=== PATIENT | male | born 2000 | race Caucasian/White ===

== ENCOUNTER 2019-06-19 16:31 | Emergency (ER) | payer OTHER ==
[~2019-06-19] VITALS: Ht 167.6 cm; Wt 77.1 kg
[2019-06-19 16:51] VITALS: BP 131/93
--- NOTE | 2019-06-19 17:11 | NUR ---
19 Y/O M C/C RLQ PAIN 8/10, PRESSURE, RADIATING TO TESTICLES X 1 WEEK. PER PT DENIES TRAUMA, BUT LIFTED HEAVY EQUIPMENT A WEEK AGO. PT TAKING IBUPROFEN WITH NO RELIEF. PT NKA. NO HX. NO RX. NO N/V/D. SIDE RAIL X1. SKIN WARM TO TOUCH.
[2019-06-19 17:46] VITALS: BP 131/93
--- NOTE | 2019-06-19 17:46 | NUR ---
Patient discharged with v/s stable. Written and verbal after care instructions given and explained. Patient alert, oriented and verbalized understanding of instructions. Carried with steady gait. All questions addressed prior to discharge. ID band removed. Patient advised to follow up with PMD. Opportunity to ask questions provided and answered.
== END 2019-06-19 17:46 | disposition home or self-care (01) ==
LOC: MED 16:31
DX: S39.011A Strain of muscle, fascia and tendon of abdomen, initial encounter (principal); R03.0 Elevated blood-pressure reading, without diagnosis of hypertension; X50.0XXA Overexertion from strenuous movement or load, initial encounter; Y93.89 Activity, other specified; Y92.89 Other specified places as the place of occurrence of the external cause; Y99.8 Other external cause status
CPT/HCPCS: 99283

== ENCOUNTER 2021-05-23 18:11 | Emergency (ER) | payer SELFPAY ==
[~2021-05-23] VITALS: Ht 165.1 cm; Wt 78.0 kg
[2021-05-23 18:32] VITALS: BP 138/73
--- NOTE | 2021-05-23 18:44 | NUR ---
EKG AT TRIAGE ROOM.
--- NOTE | 2021-05-23 18:57 | NUR ---
C/O 11/25 LEFT CHEST PAIN, LEGS CRAMPING S/P PLAYING BASKETBALL X TODAY. PMH: DENIES
[2021-05-23] MEDS ORDERED: LORazepam 0.5 MG TAB PO ONE (19:10)
[2021-05-23] MEDS ORDERED: KETOROLAC 30 MG/ML VIAL IM ONE (19:20)
[2021-05-23 20:46] LABS: BASOPHILS # (AUTO) 0.1 K/uL (0.00-0.22); BASOPHILS % (AUTO) 0.4 % (0.0-2.0); EOSINOPHILS % (AUTO) 0.3 % (0.0-4.0); HEMATOCRIT 47.4 % (36-52); HEMOGLOBIN 16.6 g/dL (12.0-18.0); LYMPHOCYTES # (AUTO) 1.2 K/uL (2.0-11.5); LYMPHOCYTES % (AUTO) 7.9 % (20.5-51.1); MEAN CORPUSCULAR HEMOGLOBIN 29 pg (27-31); MEAN CORPUSCULAR HGB CONC 35 g/dL (33-37); MONOCYTES # (AUTO) 0.8 K/uL (0.8-1.0); MONOCYTES % (AUTO) 5.7 % (1.7-9.3); NEUTROPHILS # (AUTO) 12.6 K/uL (1.8-7.7); NEUTROPHILS % (AUTO) 85.7 % (42.2-75.2); PLATELET COUNT (AUTO) 268 K/uL (140-450); RED BLOOD CELL COUNT(AUTO) 5.71 MIL/uL (4.20-6.10); RED CELL DISTRIBUTION WIDTH 13.5 % (11.6-13.7); WHITE BLOOD COUNT (AUTO) 14.8 K/uL (4.8-10.8)
[2021-05-23 22:29] LABS: ALBUMIN 4.6 g/dL (3.4-5.0); ANION GAP 15.7 (8-16); CARBON DIOXIDE 25.8 mmol/L (21-32); CREATININE 0.8 mg/dL (0.6-1.3); POTASSIUM 3.5 mmol/L (3.5-5.1); TOTAL BILIRUBIN 0.5 mg/dL (0.0-1.0)
[2021-05-23 22:49] VITALS: BP 120/68
--- NOTE | 2021-05-23 22:50 | NUR ---
Patient discharged with v/s stable. Written and verbal after care instructions given and explained. Patient verbalized understanding. Ambulatory with steady gait. All questions addressed prior to discharge. Advised to follow up with PMD.
== END 2021-05-23 22:50 | disposition home or self-care (01) ==
LOC: MED 18:11
DX: R00.2 Palpitations (principal); R10.9 Unspecified abdominal pain; R25.2 Cramp and spasm
CPT/HCPCS: 36415; 71045; 74176; 80053; 81002; 83690; 85025; 93005; 96372; 99285; J1885

== ENCOUNTER 2021-08-07 10:21 | Outpatient (CLI) | payer MEDICAID ==
[2021-08-07 10:52] LABS: BASOPHILS # (AUTO) 0.1 K/uL (0.00-0.22); BASOPHILS % (AUTO) 0.7 % (0.0-2.0); EOSINOPHILS # (AUTO) 0.2 K/uL (0-0.4); EOSINOPHILS % (AUTO) 2.9 % (0.0-4.0); HEMATOCRIT 47.7 % (36-52); HEMOGLOBIN 16.7 g/dL (12.0-18.0); LYMPHOCYTES # (AUTO) 1.6 K/uL (2.0-11.5); LYMPHOCYTES % (AUTO) 20.1 % (20.5-51.1); MEAN CORPUSCULAR HEMOGLOBIN 29 pg (27-31); MEAN CORPUSCULAR HGB CONC 35 g/dL (33-37); MEAN CORPUSCULAR VOLUME 82.8 fL (80-94); MONOCYTES # (AUTO) 0.6 K/uL (0.8-1.0); MONOCYTES % (AUTO) 7.5 % (1.7-9.3); NEUTROPHILS # (AUTO) 5.5 K/uL (1.8-7.7); NEUTROPHILS % (AUTO) 68.8 % (42.2-75.2); PLATELET COUNT (AUTO) 241 K/uL (140-450); RED BLOOD CELL COUNT(AUTO) 5.77 MIL/uL (4.20-6.10); RED CELL DISTRIBUTION WIDTH 13.4 % (11.6-13.7)
[2021-08-07 11:07] LABS: ALBUMIN 4.1 g/dL (3.4-5.0); ANION GAP 7.9 (8-16); CHOL/HDL RATIO 4.1 (1-4.5); CREATININE 0.7 mg/dL (0.6-1.3); POTASSIUM 3.9 mmol/L (3.5-5.1); TOTAL BILIRUBIN 0.4 mg/dL (0.0-1.0)
[2021-08-08 12:07] LABS: HEPATITIS A ANTIBODY IGM Negative (Negative); HEPATITIS B SURFACE ANTIGEN Negative (Negative)
== END 2021-08-07 19:56 | disposition home or self-care (01) ==
LOC: MLB 10:21 → EDSTATUS 11:49 → MLB 19:56
PROVIDERS: ATTEND Family Medicine
DX: Z13.220 Encounter for screening for lipoid disorders (principal)
CPT/HCPCS: 36415; 80053; 80074; 85025; 86803

== ENCOUNTER 2021-09-18 21:20 | Emergency (ER) | payer MEDICAID ==
[~2021-09-18] VITALS: Ht 157.5 cm; Wt 81.6 kg
--- NOTE | 2021-09-18 22:40 | NUR ---
Dr. Damon examining patient.
[2021-09-18] MEDS ORDERED: IBUPROFEN 800 MG TAB PO ONE (23:50)
--- NOTE | 2021-09-19 | NUR ---
COVID-19 and flu swabs collected and sent to lab.
[2021-09-19 00:13] LABS: BASOPHILS # (AUTO) 0.1 K/uL (0.00-0.22); BASOPHILS % (AUTO) 0.5 % (0.0-2.0); EOSINOPHILS # (AUTO) 0.1 K/uL (0-0.4); EOSINOPHILS % (AUTO) 0.8 % (0.0-4.0); HEMATOCRIT 48.3 % (36-52); HEMOGLOBIN 16.8 g/dL (12.0-18.0); LYMPHOCYTES # (AUTO) 1.8 K/uL (2.0-11.5); LYMPHOCYTES % (AUTO) 14.8 % (20.5-51.1); MEAN CORPUSCULAR HEMOGLOBIN 29 pg (27-31); MEAN CORPUSCULAR HGB CONC 35 g/dL (33-37); MEAN CORPUSCULAR VOLUME 83.2 fL (80-94); MONOCYTES # (AUTO) 0.7 K/uL (0.8-1.0); MONOCYTES % (AUTO) 5.9 % (1.7-9.3); NEUTROPHILS # (AUTO) 9.6 K/uL (1.8-7.7); PLATELET COUNT (AUTO) 287 K/uL (140-450); RED CELL DISTRIBUTION WIDTH 13.7 % (11.6-13.7); WHITE BLOOD COUNT (AUTO) 12.3 K/uL (4.8-10.8)
--- NOTE | 2021-09-19 01:34 | NUR ---
Assumed patient care, here for bodyaches. No assesment no signs of distress, all blood work and swab done, awaiting for results.
[2021-09-19 01:49] LABS: CREATININE 0.7 mg/dL (0.6-1.3); TOTAL BILIRUBIN 0.5 mg/dL (0.0-1.0)
[2021-09-19 02:07] VITALS: BP 115/51
--- NOTE | 2021-09-19 02:31 | NUR ---
Pt cleared for dc to home with Dr. Damon. Vs stable on dc, instructions reinforced.
[2021-09-19 02:51] LABS: ALBUMIN 4.6 g/dL (3.4-5.0)
== END 2021-09-19 02:30 | disposition home or self-care (01) ==
LOC: MED 21:20
DX: M79.18 Myalgia, other site (principal); Z20.822 Contact with and (suspected) exposure to COVID-19
CPT/HCPCS: 36415; 80053; 82550; 85025; 99283

== ENCOUNTER 2021-09-23 09:46 | Emergency (ER) | payer MEDICAID ==
[~2021-09-23] VITALS: Ht 167.6 cm; Wt 80.3 kg
[2021-09-23 09:54] VITALS: BP 134/68
--- NOTE | 2021-09-23 09:59 | NUR ---
PT AMBULATED TO BED 07.
--- NOTE | 2021-09-23 10:15 | NUR ---
21 Y/O MALE C/O BILATERAL LEG AND SHOULDER PAIN, WAS SEEN HERE LAST WEEK FOR SAME SYMPTOMS AND DC BUT HAS NOT FOUND RELIEF. PMH: DENIES NKA
[2021-09-23] MEDS ORDERED: VITA-16 PO (10:44)
[2021-09-23 10:54] VITALS: BP 115/74
--- NOTE | 2021-09-23 10:55 | NUR ---
Patient discharged with v/s stable. Written and verbal after care instructions given and explained. Patient alert, oriented and verbalized understanding of instructions. Ambulatory with steady gait. All questions addressed prior to discharge. ID band removed. Patient advised to follow up with PMD. Rx of VITAMIN D3 given. Patient educated on indication of medication including possible reaction and side effects. Opportunity to ask questions provided and answered.
== END 2021-09-23 10:55 | disposition home or self-care (01) ==
LOC: MED 09:46
DX: M79.10 Myalgia, unspecified site (principal); Z79.899 Other long term (current) drug therapy
CPT/HCPCS: 99282

== ENCOUNTER 2021-11-27 09:20 | Emergency (ER) | payer MEDICAID ==
[~2021-11-27] VITALS: Ht 165.1 cm; Wt 81.8 kg
[~2021-11-27 09:20] MED LIST: VITA-16 PO
[2021-11-27 10:00] VITALS: BP 132/79
--- NOTE | 2021-11-27 10:24 | NUR ---
Patient ambulated to bed 12 with steady/even gait.
--- NOTE | 2021-11-27 10:50 | NUR ---
Dr. Lema is evaluating patient at bedside with [place]ian interpretor Andres #[phone].
--- NOTE | 2021-11-27 10:50 | NUR ---
21 y/o M BIB self from home c/o dizziness, weakness, muscle spasms, double/blurry vision x 2 days. Patient A&Ox4, ambulatory, states symptoms worsen with sun exposure, reports near syncope and weakness when ambulating. Pt requesting MRI completed as advised by PCP. Next neuro appointment in March per patient. Admitted to [facility] 10/07 for myalgia. Patient denies chest pain, SOB, headache, abdominal pain, fever, chills, cough. Denies meds prior to arrival. entry level sales representative in place. Bed locked in lowest position, side rails x 1. NKDA Meds: Vitamin D3
--- NOTE | 2021-11-27 11:00 | NUR ---
Blood sample handed to CPT Lon in lab.
[2021-11-27 11:25] LABS: BASOPHILS # (AUTO) 0.1 K/uL (0.00-0.22); EOSINOPHILS # (AUTO) 0.3 K/uL (0-0.4); EOSINOPHILS % (AUTO) 2.8 % (0.0-4.0); HEMATOCRIT 49.4 % (36-52); HEMOGLOBIN 16.9 g/dL (12.0-18.0); LYMPHOCYTES # (AUTO) 1.9 K/uL (2.0-11.5); LYMPHOCYTES % (AUTO) 19.5 % (20.5-51.1); MEAN CORPUSCULAR HEMOGLOBIN 29 pg (27-31); MEAN CORPUSCULAR HGB CONC 34 g/dL (33-37); MEAN CORPUSCULAR VOLUME 83.6 fL (80-94); MONOCYTES # (AUTO) 0.7 K/uL (0.8-1.0); MONOCYTES % (AUTO) 6.8 % (1.7-9.3); NEUTROPHILS # (AUTO) 6.7 K/uL (1.8-7.7); NEUTROPHILS % (AUTO) 69.9 % (42.2-75.2); PLATELET COUNT (AUTO) 227 K/uL (140-450); RED BLOOD CELL COUNT(AUTO) 5.91 MIL/uL (4.20-6.10); RED CELL DISTRIBUTION WIDTH 13.5 % (11.6-13.7); WHITE BLOOD COUNT (AUTO) 9.6 K/uL (4.8-10.8)
[2021-11-27 11:41] LABS: APPEARANCE,URINE CLEAR (CLEAR); BILIRUBIN,URINE NEGATIVE (NEGATIVE); BLOOD, URINE NEGATIVE (NEGATIVE); COLOR,URINE YELLOW (YELLOW); LEUKOCYTE ESTERASE ,URINE NEGATIVE (NEGATIVE); NITRITE, URINE NEGATIVE (NEGATIVE); UGLUCOSE NEGATIVE (NEGATIVE)
[2021-11-27 11:42] LABS: ALBUMIN 3.9 g/dL (3.4-5.0); ANION GAP 9.4 (8-16); CARBON DIOXIDE 30.2 mmol/L (21-32); CREATININE 0.8 mg/dL (0.6-1.3); POTASSIUM 3.6 mmol/L (3.5-5.1); TOTAL BILIRUBIN 0.4 mg/dL (0.0-1.0)
[2021-11-27 12:45] VITALS: BP 126/81
--- NOTE | 2021-11-27 13:55 | NUR ---
Patient discharged with v/s stable. Written and verbal after care instructions given and explained. Patient verbalized understanding. Ambulatory with steady gait. All questions addressed prior to discharge. Advised to follow up with PMD. Blood work, UA, RAD results copy given to patient.
== END 2021-11-27 13:55 | disposition home or self-care (01) ==
LOC: MED 09:20
DX: R53.1 Weakness (principal)
CPT/HCPCS: 36415; 71045; 80053; 81003; 82550; 83880; 84484; 85025; 93005; 99285